=== PATIENT | male | born 1970 | race Caucasian/White ===

== ENCOUNTER 2017-08-20 16:06 | Observation (INO) | payer BC ==
--- NOTE | 2017-08-20 17:03 | ER Document Report ---
ED General - General Chief Complaint: Fall Stated Complaint: FALL ARM PAIN Time Seen by Provider: 08/20/17 16:19 Information source: Patient, Relative - TRAVEL OUTSIDE OF THE [place] IN LAST 30 DAYS: No - HPI Patient complains to provider of: syncope Onset: Just prior to arrival - between 200-230 pm today Associated symptoms: None Notes: Patient states around 230 today he was walking down his steps when he was about 3 steps from the floor and he passed out. He did not realize he was going to pass out. He states he did get up he was sitting in a glider and then again he got up to walk and he passed out again. He states that a few days ago he passed out while in the park but did not seek medical attention at that time. Patient states he does have a history of Chiari malformation. He has had C6-C7 fused in 2013. He denies shortness of breath, chest pain, fever, nausea vomiting diarrhea, seizures or any other complaints. - Related Data Allergies/Adverse Reactions: codeine Allergy (Verified 03/03/16 04:49) oxycodone Allergy (Verified 03/03/16 04:49) tree nut Allergy (Verified 03/03/16 04:49) Past Medical History - General Information source: Patient, Relative - Social History Smoking Status: Never Smoker Frequency of alcohol use: None Drug Abuse: None Lives with: Family Family History: Hypertension Patient has suicidal ideation: No Patient has homicidal ideation: No - Past Medical History Cardiac Medical History: Reports: Hx Hypertension Pulmonary Medical History: Reports: None EENT Medical History: Reports: None Neurological Medical History: Reports: None Endocrine Medical History: Reports: None Renal/ Medical History: Reports: None Malignancy Medical History: Reports None GI Medical History: Reports: Other - Umbilical hernia Musculoskeltal Medical History: Reports Other - Chiari malformation Skin Medical History: Reports None Psychiatric Medical History: Reports: None Past Surgical History: Reports: Other - Multiple septal surgeries. Turbinate surgery. Hernia at 1-year-old - Immunizations Hx Diphtheria, Pertussis, Tetanus Vaccination: Yes History of Influenza Vaccine for 04/2017 - 09/2017 Season: Yes Review of Systems - Review of Systems Constitutional: No symptoms reported EENT: No symptoms reported Cardiovascular: No symptoms reported Respiratory: No symptoms reported Gastrointestinal: Abdominal pain Genitourinary: No symptoms reported Male Genitourinary: No symptoms reported Musculoskeletal: Other - he complains of pain to his entire body just about including both wrists both hips right greater than left. Patient has been ambulatory since both falls to the bathroom without difficulty. Skin: No symptoms reported Hematologic/Lymphatic: No symptoms reported Neurological/Psychological: No symptoms reported Physical Exam - Vital signs Vitals: Temp Pulse BP Pulse Ox 97.5 F 77 157/70 H 98 08/20/17 16:11 08/20/17 16:11 08/20/17 16:11 08/20/17 16:11 - Notes Notes: PHYSICAL EXAMINATION: GENERAL: Well-appearing, well-nourished and in no acute distress. Obese male laying on his left side on the gurney without any signs of distress. HEAD: Atraumatic, normocephalic. EYES: Pupils equal round and reactive to light, extraocular movements intact, sclera anicteric, conjunctiva are normal. ENT: Nares patent, oropharynx clear without exudates. Moist mucous membranes. NECK: Normal range of motion, supple without lymphadenopathy LUNGS: Breath sounds clear to auscultation bilaterally and equal. No wheezes rales or rhonchi. HEART: Regular rate and rhythm without murmurs ABDOMEN: Obese, soft, mild diffuse abdominal tenderness, nondistended abdomen, large ventral wall hernia superiorly placed to the umbilicus. No guarding, no rebound. No masses appreciated. Musculoskeletal: Normal range of motion, no pitting, deformity or edema. No cyanosis. NEUROLOGICAL: Cranial nerves grossly intact. Normal speech, normal gait. Normal sensory, motor exams PSYCH: Normal mood, normal affect. SKIN: Warm, Dry, normal turgor, no rashes or lesions noted. Course - Re-evaluation Re-evalutation: 08/20/17 18:36 Abdomen/Pelvis CT 08/20/17 16:54 IMPRESSION: NO SIGNIFICANT OR ACUTE PROCESS IN THE ABDOMEN OR PELVIS. Head CT 08/20/17 16:54 IMPRESSION: NORMAL BRAIN CT WITHOUT CONTRAST. EVIDENCE OF ACUTE STROKE: NO. Chest X-Ray 08/20/17 16:56 IMPRESSION: NO ACUTE RADIOGRAPHIC FINDING IN THE CHEST. Cervical Spine CT 08/20/17 16:58 IMPRESSION: NO ACUTE OR SIGNIFICANT FINDINGS IN THE CERVICAL SPINE. 08/20/17 18:41 I spoke to he states get a telemetry bed and he will have Dr. Marquez see the patient for admission. - Vital Signs Vital signs: Temp Pulse Resp BP Pulse Ox 97.5 F 77 157/70 H 98 08/20/17 16:11 08/20/17 16:11 08/20/17 16:11 08/20/17 16:11 - Laboratory Result Diagrams: 08/20/17 17:30 08/20/17 17:30 Laboratory results interpreted by me: 08/20/17 08/20/17 17:30 17:30 WBC 10.6 H Eosinophils % 7.2 H Absolute Eosinophils 0.8 H Potassium 3.1 L Chloride 96 L Carbon Dioxide 33 H - Diagnostic Test Radiology reviewed: Image reviewed - EKG Interpretation by Me EKG shows normal: Sinus rhythm - 72 Rate: Normal [place]/QRS: Left axis deviation, IVCD When compared to previous EKG there are: Previous EKG unavailable Discharge - Discharge Clinical Impression: Syncope, Hypokalemia Disposition: ADMITTED OBSERVATION Unit Admitted: Telemetry - Dr. Marquez (discussed with Dr. Mendosa)
[2017-08-20 17:51] LABS: ABSOLUTE BASOPHILS # (AUTO) 0.1 10^3/uL (0.0-0.2); ABSOLUTE EOSINOPHILS # (AUTO) 0.8 10^3/uL (0.0-0.6); ABSOLUTE LYMPHOCYTES (AUTO) 1.9 10^3/uL (0.5-4.7); ABSOLUTE MONOCYTES (AUTO) 0.9 10^3/uL (0.1-1.4); BASOPHILS % (AUTO) 0.5 % (0-2); EOSINOPHILS % (AUTO) 7.2 % (0-6); HEMATOCRIT 42.3 % (37.9-51.0); HEMOGLOBIN 14.8 g/dL (13.5-17.0); LYMPHOCYTES % (AUTO) 17.9 % (13-45); MEAN CORPUSCULAR HEMOGLOBIN 29.3 pg (27.0-33.4); MEAN CORPUSCULAR HGB CONC 34.9 g/dL (32.0-36.0); MEAN CORPUSCULAR VOLUME 84 fl (80-97); MONOCYTES % (AUTO) 8.1 % (3-13); PLATELET COUNT 274 10^3/uL (150-450); RED BLOOD COUNT 5.04 10^6/uL (4.35-5.55); RED CELL DISTRIBUTION WIDTH 13.9 % (11.5-14.0); SEGMENTED NEUTROPHILS % (AUTO) 66.3 % (42-78); TOTAL CELLS COUNTED % (AUTO) 100 %; WHITE BLOOD COUNT 10.6 10^3/uL (4.0-10.5)
[2017-08-20 17:56] LABS: APPEARANCE,URINE CLEAR; BILIRUBIN,URINE NEGATIVE (NEGATIVE); COLOR,URINE STRAW; GLUCOSE, URINE NEGATIVE (NEGATIVE); KETONES,URINE NEGATIVE (NEGATIVE); LEUKOCYTE ESTERASE,URINE NEGATIVE (NEGATIVE); NITRITE,URINE NEGATIVE (NEGATIVE); PROTEIN,URINE NEGATIVE (NEGATIVE); URINE SPECIFIC GRAVITY 1.008; UROBILINOGEN,URINE NEGATIVE mg/dL (<2.0)
--- NOTE | 2017-08-20 18:01 | EKG REPORT ---
SEVERITY:- ABNORMAL ECG - SINUS RHYTHM RIGHT BUNDLE BRANCH BLOCK AND LAFB. LEFT VENTRICULAR HYPERTROPHY LATERAL INFARCT, OLD ANTERIOR INFARCT, AGE INDETERMINATE : Confirmed by: Barron Armas MD 20-Aug-2017 17:59:49
--- NOTE | 2017-08-20 18:03 | RADIOLOGY REPORT (SQ) ---
EXAM DESCRIPTION: CHEST SINGLE VIEW COMPLETED DATE/TIME: 08/20/2017 5:44 pm REASON FOR STUDY: syncope COMPARISON: None. EXAM PARAMETERS: NUMBER OF VIEWS: One view. TECHNIQUE: Single frontal radiographic view of the chest acquired. RADIATION DOSE: NA LIMITATIONS: None. FINDINGS: LUNGS AND PLEURA: No opacities, masses or pneumothorax. No pleural effusion. MEDIASTINUM AND HILAR STRUCTURES: No masses. Contour normal. HEART AND VASCULAR STRUCTURES: Heart normal in size. Normal vasculature. BONES: No acute findings. HARDWARE: None in the chest. OTHER: No other significant finding. IMPRESSION: NO ACUTE RADIOGRAPHIC FINDING IN THE CHEST. TECHNICAL DOCUMENTATION: JOB ID: [id number] [employer]- All Rights Reserved
[2017-08-20 18:04] LABS: ALANINE AMINOTRANSFERASE 44 U/L (21-72); ALBUMIN 4.5 g/dL (3.5-5.0); ALKALINE PHOSPHATASE 72 U/L (38-126); ANION GAP 12 (5-19); ASPARTATE AMINO TRANSFERASE 32 U/L (17-59); BILIRUBIN,DIRECT 0.4 mg/dL (0.0-0.4); BILIRUBIN,TOTAL 0.5 mg/dL (0.2-1.3); BLOOD UREA NITROGEN 17 mg/dL (7-20); CALCIUM 10.2 mg/dL (8.4-10.2); CARBON DIOXIDE 33 mmol/L (22-30); CHLORIDE 96 mmol/L (98-107); GLUCOSE 95 mg/dL (75-110); MAGNESIUM 2.1 mg/dL (1.6-2.3); POTASSIUM 3.1 mmol/L (3.6-5.0); SODIUM 140.7 mmol/L (137-145); TOTAL PROTEIN 7.2 g/dL (6.3-8.2)
--- NOTE | 2017-08-20 18:16 | RADIOLOGY REPORT (SQ) ---
EXAM DESCRIPTION: CT HEAD WITHOUT COMPLETED DATE/TIME: 08/20/2017 6:04 pm REASON FOR STUDY: syncope COMPARISON: None. TECHNIQUE: Axial images acquired through the brain without intravenous contrast. Images reviewed wi th bone, brain and subdural windows. Images stored on PACS. All CT scanners at this facility use dose modulation, iterative reconstruction, and/or weight based d osing when appropriate to reduce radiation dose to as low as reasonably achievable (ALARA). [facility]: Dose Right [facility]: CareDose [facility]: Dose Right [facility]: Teradose 4D [facility]: Face-Me RADIATION DOSE: CT Rad equipment meets quality standard of care and radiation dose reduction techniq ues were employed. CTDIvol: 64.6 mGy. DLP: 1292 mGy-cm. mGy. LIMITATIONS: None. FINDINGS: VENTRICLES: Normal size and contour. CEREBRUM: No masses. No hemorrhage. No midline shift. No evidence for acute infarction. Normal gra y/white matter differentiation. No areas of low density in the white matter. CEREBELLUM: No masses. No hemorrhage. No alteration of density. No evidence for acute infarction. EXTRAAXIAL SPACES: No fluid collections. No masses. ORBITS AND GLOBE: No intra- or extraconal masses. Normal contour of globe without masses. CALVARIUM: No fracture. PARANASAL SINUSES: No fluid or mucosal thickening. SOFT TISSUES: No mass or hematoma. OTHER: No other significant finding. IMPRESSION: NORMAL BRAIN CT WITHOUT CONTRAST. EVIDENCE OF ACUTE STROKE: NO. COMMENT: Quality ID # 436: Final reports with documentation of one or more dose reduction techniques (e.g., Automated exposure control, adjustment of the mA and/or kV according to patient size, use of iterative reconstruction technique) TECHNICAL DOCUMENTATION: JOB ID: [id number] [employer]- All Rights Reserved
--- NOTE | 2017-08-20 18:18 | RADIOLOGY REPORT (SQ) ---
EXAM DESCRIPTION: CT CERVICAL SPINE WITHOUT COMPLETED DATE/TIME: 08/20/2017 6:04 pm REASON FOR STUDY: fall COMPARISON: CT brain same date TECHNIQUE: Axial images acquired through the cervical spine without intravenous contrast. Images re viewed with lung, soft tissue and bone windows. Reconstructed coronal and sagittal MPR images review ed. Images stored on PACS. All CT scanners at this facility use dose modulation, iterative reconstruction, and/or weight based d osing when appropriate to reduce radiation dose to as low as reasonably achievable (ALARA). [facility]: Dose Right [facility]: CareDose [facility]: Dose Right [facility]: Teradose 4D [facility]: Smart [employer] RADIATION DOSE: CT Rad equipment meets quality standard of care and radiation dose reduction techniq ues were employed. CTDIvol: 24.5 mGy. DLP: 560 mGy-cm. mGy. LIMITATIONS: Streak artifact from metallic disc spacer and anterior fixation plate at C6-7 FINDINGS: ALIGNMENT: Anatomic. MINERALIZATION: Normal. VERTEBRAL BODIES: No fractures or dislocation. DISCS: Post fusion with metallic hardware at C6-7 FACETS, LATERAL MASSES, POSTERIOR ELEMENTS: No fractures. No dislocation. No acute findings. HARDWARE: None in the spine. VISUALIZED RIBS: No fractures. LUNG APICES AND SOFT TISSUES: No significant or acute findings. OTHER: No other significant finding. IMPRESSION: NO ACUTE OR SIGNIFICANT FINDINGS IN THE CERVICAL SPINE. TECHNICAL DOCUMENTATION: JOB ID: [id number] Quality ID # [id number]: Final reports with documentation of one or more dose reduction techniques (e.g., Au tomated exposure control, adjustment of the mA and/or kV according to patient size, use of iterative reconstruction technique) 2010 [employer]- All Rights Reserved
--- NOTE | 2017-08-20 18:21 | RADIOLOGY REPORT (SQ) ---
EXAM DESCRIPTION: CT ABD/PELVIS NO ORAL OR IV COMPLETED DATE/TIME: 08/20/2017 6:04 pm REASON FOR STUDY: syncope COMPARISON: CT abdomen pelvis 03/03/2016 TECHNIQUE: CT scan of the abdomen and pelvis performed without intravenous or oral contrast. Images reviewed with lung, soft tissue, and bone windows. Reconstructed coronal and sagittal MPR images revi ewed. All images stored on PACS. All CT scanners at this facility use dose modulation, iterative reconstruction, and/or weight based d osing when appropriate to reduce radiation dose to as low as reasonably achievable (ALARA). [facility]: Dose Right [facility]: CareDose [facility]: Dose Right [facility]: Teradose 4D [facility]: Smart [employer] RADIATION DOSE: CT Rad equipment meets quality standard of care and radiation dose reduction techniq ues were employed. CTDIvol: 14.4 mGy. DLP: 916 mGy-cm.mGy. LIMITATIONS: None. FINDINGS: LOWER CHEST: No significant findings. No nodules or infiltrates. NON-CONTRASTED LIVER, SPLEEN, ADRENALS: Evaluation limited by lack of IV contrast. No identified sign ificant masses. PANCREAS: No masses. No peripancreatic inflammatory changes. GALLBLADDER: No identified stones by CT criteria. No inflammatory changes to suggest cholecystitis. RIGHT KIDNEY AND URETER: No suspicious masses. Assessment limited by lack of IV contrast. No signif icant calcifications. No hydronephrosis or hydroureter. LEFT KIDNEY AND URETER: No suspicious masses. Assessment limited by lack of IV contrast. No signifi cant calcifications. No hydronephrosis or hydroureter. AORTA AND RETROPERITONEUM: No aneurysm. No retroperitoneal masses or adenopathy. BOWEL AND PERITONEAL CAVITY: No obvious masses or inflammatory changes. No free fluid. APPENDIX: Normal. PELVIS, BLADDER, AND ABDOMINAL WALL:No abnormal masses. No free fluid. Bladder normal. BONES: No significant findings. OTHER: No other significant finding. IMPRESSION: NO SIGNIFICANT OR ACUTE PROCESS IN THE ABDOMEN OR PELVIS. COMMENT: Quality ID # [id number]: Final reports with documentation of one or more dose reduction techniques (e.g., Automated exposure control, adjustment of the mA and/or kV according to patient size, use of iterative reconstruction technique) TECHNICAL DOCUMENTATION: JOB ID: [id number] [employer]- All Rights Reserved
[2017-08-20] MEDS ORDERED: POTASSIUM CHLORIDE 10 MEQ TABLET.SA PO ONE (18:37)
[2017-08-20 19:48] LABS: URINE AMPHETAMINES SCREEN NEGATIVE; URINE BARBITURATES SCREEN NEGATIVE; URINE BENZODIAZEPINES SCREEN NEGATIVE; URINE COCAINE SCREEN NEGATIVE; URINE MARIJUANA (THC) SCREEN NEGATIVE; URINE METHADONE SCREEN NEGATIVE; URINE PHENCYCLIDINE SCREEN NEGATIVE
[2017-08-20] MEDS ORDERED: ACETAMINOPHEN 325 MG TABLET PO PRN (20:45)
[2017-08-20] MEDS ORDERED: MAG HYDROX/AL HYDROX/SIMETH SUSP 30 ML UDCUP PO PRN (20:45)
[2017-08-20] MEDS ORDERED: NORMAL SALINE 1000 ML 1,000 ML IV ONE (21:00)
[2017-08-20 21:25] LABS: CREATINE KINASE MB 0.92 ng/mL (<4.55); TROPONIN I < 0.012 ng/mL
[2017-08-20] MEDS: HEPARIN SOD (PORCINE) 5,000 UNIT/ML 1 ML SYRINGE SUBCUT SCH (22:04)
--- NOTE | 2017-08-20 22:30 | EKG REPORT ---
SEVERITY:- ABNORMAL ECG - SINUS RHYTHM NONSPECIFIC IVCD WITH LAD LEFT VENTRICULAR HYPERTROPHY LATERAL INFARCT, OLD : Confirmed by: Barron Armas MD 20-Aug-2017 22:30:14
[2017-08-20] MEDS ORDERED: METOPROLOL TARTRATE 25 MG TABLET PO ONE (22:45)
--- NOTE | 2017-08-21 05:43 | PDOC H&P ---
History of Present Illness Admission Date/PCP: 08/20/17 21:32 Patient complains of: Syncope History of Present Illness: MELLISA SAEZ is a 47 year old male with a past medical history of hypertension, type I Chiari malformation with subsequent tremor and hearing difficulty. Patient presents with 2 episodes of syncope over the last week. He denies previous episode, premonition, chest pain, shortness of breath, palpitations, lightheadedness nausea or vomiting or post event incontinence, injury or confusion. In the emergency room he is found to have hypertension, hypokalemia but an otherwise unremarkable extensive workup. He is referred to the hospitalist for admission. Patient home medication include Norvasc and recent initiation of hydrochlorothiazide for lower extremity edema. Past Medical History Cardiac Medical History: Reports: Hypertension Pulmonary Medical History: Reports: None EENT Medical History: Reports: None Neurological Medical History: Reports: None Endocrine Medical History: Reports: None Renal/ Medical History: Reports: None Malignancy Medical History: Reports: None GI Medical History: Reports: Other - Umbilical hernia Musculoskeltal Medical History: Reports: Other - Chiari malformation Skin Medical History: Reports: None Psychiatric Medical History: Reports: None Past Surgical History Past Surgical History: Reports: Other - Multiple septal surgeries. Turbinate surgery. Hernia at 1-year-old Social History Information Source: Patient Lives with: Family Smoking Status: Never Smoker - Advance Directive Resuscitation Status: Full Code Family History Family History: Hypertension Parental Family History Reviewed: Yes Children Family History Reviewed: Yes Sibling(s) Family History Reviewed.: Yes Medication/Allergy Home Medications: Albendazole [Albenza] 400 mg PO ONCE #2 tablet 03/03/16 Ciprofloxacin HCl [Cipro 500 mg Tablet] 500 mg PO BID #10 tablet 03/03/16 Allergies/Adverse Reactions: codeine Allergy (Verified 08/20/17 20:39) oxycodone Allergy (Verified 08/20/17 20:39) polyester fibers Allergy (Verified 08/20/17 20:39) tree nut Allergy (Verified 08/20/17 20:39) Review of Systems Constitutional: ABSENT: chills, fever(s), headache(s), weight gain, weight loss Eyes: ABSENT: visual disturbances Ears: ABSENT: hearing changes Cardiovascular: ABSENT: chest pain, dyspnea on exertion, edema, orthropnea, palpitations Respiratory: ABSENT: cough, hemoptysis Gastrointestinal: ABSENT: abdominal pain, constipation, diarrhea, hematemesis, hematochezia, nausea, vomiting Genitourinary: ABSENT: dysuria, hematuria Musculoskeletal: ABSENT: joint swelling Integumentary: ABSENT: rash, wounds Neurological: ABSENT: abnormal gait, abnormal speech, confusion, dizziness, focal weakness, syncope Psychiatric: ABSENT: anxiety, depression, homidical ideation, suicidal ideation Endocrine: ABSENT: cold intolerance, heat intolerance, polydipsia, polyuria Hematologic/Lymphatic: ABSENT: easy bleeding, easy bruising Physical Exam Vital Signs: Temp Pulse Resp BP Pulse Ox 98.0 F 67 20 146/97 H 95 08/21/17 03:00 08/21/17 00:52 08/20/17 22:42 08/21/17 00:52 08/20/17 22:42 General appearance: PRESENT: no acute distress, well-developed, well-nourished Head exam: PRESENT: atraumatic, normocephalic Eye exam: PRESENT: conjunctiva pink, EOMI, PERRLA. ABSENT: scleral icterus Ear exam: PRESENT: normal external ear exam Mouth exam: PRESENT: moist, tongue midline Neck exam: ABSENT: carotid bruit, JVD, lymphadenopathy, thyromegaly Respiratory exam: PRESENT: clear to auscultation margot. ABSENT: rales, rhonchi, wheezes Cardiovascular exam: PRESENT: RRR. ABSENT: diastolic murmur, rubs, systolic murmur Pulses: PRESENT: normal dorsalis pedis pul Vascular exam: PRESENT: normal capillary refill GI/Abdominal exam: PRESENT: normal bowel sounds, soft. ABSENT: distended, guarding, mass, organolmegaly, rebound, tenderness Rectal exam: PRESENT: deferred Extremities exam: PRESENT: full ROM. ABSENT: calf tenderness, clubbing, pedal edema Neurological exam: PRESENT: alert, awake, oriented to person, oriented to place , oriented to time, oriented to situation, CN II-XII grossly intact. ABSENT: motor sensory deficit Psychiatric exam: PRESENT: appropriate affect, normal mood. ABSENT: homicidal ideation, suicidal ideation Skin exam: PRESENT: dry, intact, warm. ABSENT: cyanosis, rash Results Impressions: Abdomen/Pelvis CT 08/20/17 16:54 IMPRESSION: NO SIGNIFICANT OR ACUTE PROCESS IN THE ABDOMEN OR PELVIS. Head CT 08/20/17 16:54 IMPRESSION: NORMAL BRAIN CT WITHOUT CONTRAST. EVIDENCE OF ACUTE STROKE: NO. Chest X-Ray 08/20/17 16:56 IMPRESSION: NO ACUTE RADIOGRAPHIC FINDING IN THE CHEST. Cervical Spine CT 08/20/17 16:58 IMPRESSION: NO ACUTE OR SIGNIFICANT FINDINGS IN THE CERVICAL SPINE. Assessment & Plan - Diagnosis (1) Syncope Is this a current diagnosis for this admission?: Yes Plan: Telemetry observation concern for possible cardiac dysrhythmia versus orthostasis. Potassium repletion, follow-up telemetry and chemistry. Consider outpatient event monitor. (2) Hypertension Is this a current diagnosis for this admission?: Yes Plan: Discontinue Norvasc and hydrochlorothiazide secondary to above, trial Lopressor 25 every 12. (3) Hypokalemia Is this a current diagnosis for this admission?: Yes Plan: Discontinue his chlorothiazide. Evaluate magnesium, replete as needed with reevaluation of chemistry. - Time Time Spent: 30 to 50 Minutes - Inpatient Certification Medical Necessity: Need Close Monitoring Due to Risk of Patient Decompensation
[2017-08-21] MEDS: HEPARIN SOD (PORCINE) 5,000 UNIT/ML 1 ML SYRINGE SUBCUT SCH (06:37)
[2017-08-21 07:30] LABS: ANION GAP 11 (5-19); BLOOD UREA NITROGEN 16 mg/dL (7-20); CALCIUM 10.1 mg/dL (8.4-10.2); CARBON DIOXIDE 30 mmol/L (22-30); CHLORIDE 99 mmol/L (98-107); GLUCOSE 120 mg/dL (75-110); POTASSIUM 3.4 mmol/L (3.6-5.0); SODIUM 139.7 mmol/L (137-145)
[2017-08-21 08:22] VITALS: BP 160/90
--- NOTE | 2017-08-21 09:32 | Progress Note ---
Provider Note Provider Note: Will check Echo, U/S of Carotids, and Cardiology consult. Will have repeat EKG this morning. Pt had an abnormal EKG.
[2017-08-21] MEDS ORDERED: METOPROLOL TARTRATE 25 MG TABLET PO SCH (10:00)
--- NOTE | 2017-08-21 12:37 | PDOC CONSULTATION ---
Consultation Consult Date: 08/21/17 Attending physician:: BONG TEJEDA Consult reason:: Syncope History of Present Illness Admission Date/PCP: 08/20/17 21:32 Patient complains of: Syncope and drop attacks History of Present Illness: MELLISA SAEZ is a 47 year old male with a past medical history of hypertension, type I Chiari malformation with subsequent tremor and hearing difficulty. Patient presents with 2 episodes of syncope over the last week. He denies previous episode, premonition, chest pain, shortness of breath, palpitations, lightheadedness nausea or vomiting or post event incontinence, injury or confusion. In the emergency room he is found to have hypertension, hypokalemia but an otherwise unremarkable extensive workup. He is referred to the hospitalist for admission. Patient home medication include Norvasc and recent initiation of hydrochlorothiazide for lower extremity edema. Patient claims that he would walk and all of a sudden passed out briefly. Patient claims that he has had multiple episodes in the past and has been evaluated for this condition. He had undergone cardiac evaluation but was not very keen on telling me what cardiac evaluation was performed. He did not want to undergo any cardiac testing here. Patient's in the room. Above history was reviewed, supplemented and confirmed. Patient on questioning denied any palpitations, chest pain or any shortness of breath. Past Medical History Cardiac Medical History: Reports: Hypertension Pulmonary Medical History: Reports: None EENT Medical History: Reports: None Neurological Medical History: Reports: None Endocrine Medical History: Reports: None Renal/ Medical History: Reports: None Malignancy Medical History: Reports: None GI Medical History: Reports: Other - Umbilical hernia Musculoskeltal Medical History: Reports: Other - Chiari malformation Skin Medical History: Reports: None Psychiatric Medical History: Reports: None Past Surgical History Past Surgical History: Reports: Other - Multiple septal surgeries. Turbinate surgery. Hernia at 1-year-old Social History Information Source: Patient Lives with: Family Smoking Status: Never Smoker - Advance Directive Resuscitation Status: Full Code Surrogate healthcare decision maker:: Patient spouse is the surrogate decision-maker Family History Family History: Hypertension Parental Family History Reviewed: Yes Children Family History Reviewed: Yes Sibling(s) Family History Reviewed.: Yes Medication/Allergy Home Medications: Cyclobenzaprine HCl [Flexeril 10 mg Tablet] 10 mg PO Q8HP PRN 08/21/17 Fexofenadine HCl [Elsy Allergy] 180 mg PO DAILY 08/21/17 Metoprolol Tartrate [Lopressor 25 mg Tablet] 25 mg PO Q12 08/21/17 Allergies/Adverse Reactions: codeine Allergy (Verified 08/20/17 20:39) oxycodone Allergy (Verified 08/20/17 20:39) polyester fibers Allergy (Verified 08/20/17 20:39) tree nut Allergy (Verified 08/20/17 20:39) Review of Systems Review of Systems: Please see history of present illness and past medical history as wall. Constitutional: No fever or chills reported. Head : No recent chronic headaches, recent head injury. Eyes: No recent eye pain, diplopia, redness, discharge, acute visual changes. Ears: No recent chronic ear pain, acute hearing loss, ear discharge. Oral cavity: No recent ulcerations, bleeding, oral cavity discomfort. Neck: No recent acute neck pain reported. Hematologic: No recent easy bruising or bleeding or hematologic malignancy reported. Lymphatic: No recent lymphatic malignancy, chronic lymphadenopathy reported yet Cardiovascular system review: See history of present illness. Respiratory system review: No recent chronic cough, hemoptysis, blood clots in the lungs reported. Mild Shortness of breath on exertion Gastrointestinal system review: Negative for any recent acute or chronic abdominal pain, hematemesis, melena, recent change in bowel habits. Genitourinary system review: No recent acute or chronic hematuria, flank pain, UTI etc. reported. Skin system review: Negative for any recent abnormal bruising, no rash, no pruritus reported. Neurologic: No prior history of strokes, mini strokes, seizure disorder. History of Chiari type I malformation along with history of prior drop attacks. Psychologic: No history of major psychosis or major depression reported. Musculoskeletal: Minor aches and pains reported. No acute joint swelling reported. Endocrine: No recent polyuria, polydipsia, recent heat or cold intolerance. Physical Exam Vital Signs: Temp Pulse Resp BP Pulse Ox 97.8 F 76 28 H 160/90 H 98 08/21/17 08:00 08/21/17 08:00 08/21/17 08:00 08/21/17 08:00 08/21/17 08:00 Intake & Output 08/20/17 08/21/17 08/22/17 06:59 06:59 06:59 Weight 140.614 kg Exam: GENERAL: well-nourished and in no acute distress. Alert and oriented x3 HEAD: Atraumatic, normocephalic. EYES: Pupils equal round and reactive to light, extraocular movements intact, sclera anicteric, conjunctiva are normal. ENT: TMs normal, nares patent, oropharynx clear without exudates. Moist mucous membranes. No oral ulcerations or bleeding gums noted NECK: supple without lymphadenopathy. Trachea is central. No cervical or axillary lymphadenopathy noted. Carotids are 2+, JVD WNL LUNGS: Respiration seems nonlabored, no significant accessory muscle action noted. Breath sounds clear to auscultation bilaterally and equal noted. No wheezes rales or rhonchi noted. No significant dullness noted on percussion. CHEST: Palpation of the chest wall shows no significant chest wall tenderness. No other significant abnormalities noted. HEART: [place] [employer], No PSH, 1/6 ASIYA aortic area, 1/6 fiore systolic murmur mitral area, no rubs, no gallops. ABDOMEN: Soft, no significant tenderness appreciated, normoactive bowel sounds. No guarding, no rebound. No rigidity noted . No masses appreciated. EXTREMITIES: Pedal pulses are 1-2+, no calf tenderness noted. No clubbing or cyanosis.trace to 1+ pedal edema noted NEUROLOGICAL: Focused neurological exam showed no significant neurologic deficit. Normal speech, no focal weakness appreciated. PSYCH: Normal mood, normal affect. Judgment and insight within normal limits. SKIN: No significant ecchymosis, rash, ulcerations or signs of pruritus noted. MUSCULOSKELETAL EXAM: No significant joint swelling noted. Results Laboratory Results: 08/21/17 06:56 08/21/17 06:56 Sodium 139.7 Potassium 3.4 L Chloride 99 Carbon Dioxide 30 Anion Gap 11 BUN 16 Creatinine 0.82 Est GFR ( Amer) > 60 Est GFR (Non-Af Amer) > 60 Glucose 120 H Calcium 10.1 EKG Comments: Sinus rhythm, no acute ST-T wave changes noted. Impressions: Abdomen/Pelvis CT 08/20/17 16:54 IMPRESSION: NO SIGNIFICANT OR ACUTE PROCESS IN THE ABDOMEN OR PELVIS. Head CT 08/20/17 16:54 IMPRESSION: NORMAL BRAIN CT WITHOUT CONTRAST. EVIDENCE OF ACUTE STROKE: NO. Chest X-Ray 08/20/17 16:56 IMPRESSION: NO ACUTE RADIOGRAPHIC FINDING IN THE CHEST. Cervical Spine CT 08/20/17 16:58 IMPRESSION: NO ACUTE OR SIGNIFICANT FINDINGS IN THE CERVICAL SPINE. Assessment & Plan - Diagnosis (1) Syncope Qualifiers: Syncope type: unspecified Qualified Code(s): R55 - Syncope and collapse Is this a current diagnosis for this admission?: Yes (2) Hypertension Qualifiers: Hypertension type: essential hypertension Qualified Code(s): I10 - Essential (primary) hypertension Is this a current diagnosis for this admission?: Yes (3) Hypokalemia Is this a current diagnosis for this admission?: Yes - Notes Notes: Patient lab work was reviewed. Scan of the head, pelvis reviewed. Chest x-ray reviewed which was noted to be unremarkable. EKGs obtained were reviewed. Cardiac enzymes results reviewed. Patient presents with history of recurrent syncopal attacks which he claims has a drop attacks. Exact etiology not clear but to definitely recommend cardiac event monitor, 2D echo, carotid duplex, MRI of the brain if not previously obtained. Since the orthostatic hypotension is in the differential diagnosis, recommend obtaining orthostatic blood pressure. For hypertension, would recommend switch to SEGUNDO inhibitor/ARB for blood pressure control. Try and avoid vasodilators and also diuretics. Patient may eventually need tilt table study etc. Have discussed that if he felt that these were all related to Chiari malformation then he would benefit from seeking neurology evaluation. We do not have good neurology coverage at this institution. - Time Time Spent: 30 to 50 Minutes - CODE STATUS was discussed, patient remains full code. Surrogate decision-maker unchanged. Multiple medical problems were addressed. More than 50% of the time spent coordinating care, discussing management plans with involved caregivers. Management plans discussed with involved personnels. Medical decision making was of moderate to high complexity , patient's has multiple comorbidities. Medications reviewed and adjusted accordingly: Yes
--- NOTE | 2017-08-21 12:42 | EKG REPORT ---
SEVERITY:- ABNORMAL ECG - SINUS RHYTHM FIRST DEGREE AV BLOCK RIGHT BUNDLE BRANCH BLOCK LEFT VENTRICULAR HYPERTROPHY ANTERIOR Q WAVES, POSSIBLY DUE TO LVH : Confirmed by: Krys Medrano 21-Aug-2017 12:41:53
--- NOTE | 2017-08-21 14:12 | PDOC DISCHARGE SUMMARY ---
General - Admit/Disc Date/PCP Admission Date/Primary Care Provider: 08/20/17 21:32 Discharge Date: 08/21/17 - Discharge Diagnosis (1) Syncope Is this a current diagnosis for this admission?: Yes Summary: Etiology of syncope is not clear at this time. Patient was seen by cardiology who agreed with current workup and place however patient decided to leave AGAINST MEDICAL ADVICE. (2) Hypokalemia Is this a current diagnosis for this admission?: Yes Summary: Patient was given potassium in the emergency room however left AGAINST MEDICAL ADVICE before potassium could be checked again. (3) Essential hypertension Is this a current diagnosis for this admission?: Yes Summary: Patient's home medications have been discontinued and patient had been placed on metoprolol however patient left AGAINST MEDICAL ADVICE. Therefore patient will need a follow-up with PCP - Additional Information Resuscitation Status: Full Code Home Medications: Cyclobenzaprine HCl [Flexeril 10 mg Tablet] 10 mg PO Q8HP PRN 08/21/17 Fexofenadine HCl [Elsy Allergy] 180 mg PO DAILY 08/21/17 Metoprolol Tartrate [Lopressor 25 mg Tablet] 25 mg PO Q12 08/21/17 History of Present Illness Patient complains of: Syncope. History of Present Illness: MELLISA SAEZ is a 47 year old male it after complaining of syncope at home. Hospital Course Hospital Course: Patient is a 47-year-old gentleman that was admitted early this morning who left AMA. Patient came to the emergency room because he complained of syncope that occurred at home yesterday. Patient also during my encounter gave another account of syncope that happened a few days prior to the event that happened that brought him to the emergency room. Patient also gave history that [place] would not state what they found during that evaluation. Patient was found to have low potassium was given potassium replacement in the emergency department. Patient left AGAINST MEDICAL ADVICE and did not have time to recheck potassium. Patient was seen by cardiology who recommended patient staying to undergo further evaluation to determine why he had syncopal episode. Pt was noted to have an abnormal EKG. Physical Exam Vital Signs: Temp Pulse Resp BP Pulse Ox 97.8 F 76 28 H 160/90 H 98 08/21/17 08:00 08/21/17 08:00 08/21/17 08:00 08/21/17 08:00 08/21/17 08:00 Intake & Output 08/20/17 08/21/17 08/22/17 06:59 06:59 06:59 Weight 140.614 kg General appearance: PRESENT: no acute distress, well-developed, well-nourished Head exam: PRESENT: atraumatic, normocephalic Eye exam: PRESENT: conjunctiva pink, EOMI. ABSENT: scleral icterus Ear exam: PRESENT: normal external ear exam Mouth exam: PRESENT: moist, tongue midline Neck exam: ABSENT: carotid bruit, full ROM, JVD, lymphadenopathy, meningismus, tenderness, thyromegaly, tracheal deviation, tracheostomy, other Respiratory exam: PRESENT: clear to auscultation margot. ABSENT: rales, rhonchi, wheezes Cardiovascular exam: PRESENT: RRR. ABSENT: diastolic murmur, rubs, systolic murmur Pulses: PRESENT: normal dorsalis pedis pul Vascular exam: PRESENT: normal capillary refill GI/Abdominal exam: PRESENT: normal bowel sounds, soft. ABSENT: distended, guarding, mass, organolmegaly, rebound, tenderness Rectal exam: PRESENT: deferred Extremities exam: PRESENT: full ROM. ABSENT: calf tenderness, clubbing, pedal edema Neurological exam: PRESENT: alert, awake, oriented to person, oriented to place , oriented to time, oriented to situation, CN II-XII grossly intact. ABSENT: motor sensory deficit Psychiatric exam: PRESENT: appropriate affect, normal mood. ABSENT: homicidal ideation, suicidal ideation Skin exam: PRESENT: dry, intact, warm. ABSENT: cyanosis, rash Results Laboratory Results: 08/21/17 06:56 08/21/17 06:56 Sodium 139.7 Potassium 3.4 L Chloride 99 Carbon Dioxide 30 Anion Gap 11 BUN 16 Creatinine 0.82 Est GFR ( Amer) > 60 Est GFR (Non-Af Amer) > 60 Glucose 120 H Calcium 10.1 Impressions: Abdomen/Pelvis CT 08/20/17 16:54 IMPRESSION: NO SIGNIFICANT OR ACUTE PROCESS IN THE ABDOMEN OR PELVIS. Head CT 08/20/17 16:54 IMPRESSION: NORMAL BRAIN CT WITHOUT CONTRAST. EVIDENCE OF ACUTE STROKE: NO. Chest X-Ray 08/20/17 16:56 IMPRESSION: NO ACUTE RADIOGRAPHIC FINDING IN THE CHEST. Cervical Spine CT 08/20/17 16:58 IMPRESSION: NO ACUTE OR SIGNIFICANT FINDINGS IN THE CERVICAL SPINE. Plan Time Spent: Less than 30 Minutes
== END 2017-08-21 11:30 | disposition left against medical advice (07) ==
LOC: ER 16:06 → EH 21:32
PROVIDERS: ADMIT Internal Medicine; ATTEND Internal Medicine
DX: R55 Syncope and collapse (principal); E87.6 Hypokalemia; I10 Essential (primary) hypertension; Z53.21 Procedure and treatment not carried out due to patient leaving prior to being seen by health care provider; R94.31 Abnormal electrocardiogram [ECG] [EKG]; G93.5 Compression of brain; R60.0 Localized edema; M25.532 Pain in left wrist; M25.531 Pain in right wrist; M25.552 Pain in left hip; M25.551 Pain in right hip; E66.9 Obesity, unspecified; Z68.38 Body mass index [BMI] 38.0-38.9, adult; Z98.1 Arthrodesis status; Z79.899 Other long term (current) drug therapy; Z98.890 Other specified postprocedural states; Z82.49 Family history of ischemic heart disease and other diseases of the circulatory system
CPT/HCPCS: 93005 ×2; 99285; 36415 ×2; 82553; 82550; 83735; 85025; 80048; 80053; 81001; 84484; 80307; 83880; 71045; 70450; 72125; 74176; 93010 ×2; G0378 ×2